=== PATIENT | male | born 2000 | race Caucasian/White ===

== ENCOUNTER → 2024-06-05 | Outpatient (REF) | payer OTHER ==
[2024-06-05 19:24] LABS: GC DNA AMPLIFICATION NEGATIVE (NEGATIVE)
[2024-06-05 19:31] LABS: Trichomonas vaginalis (AMP) NOT DETECTED (NEGATIVE)
== END ==
LOC: M LAB REF 16:31
PROVIDERS: ATTEND Physician Assistant
DX: R30.0 Dysuria (principal)